=== PATIENT | female | born 1995 | race Hispanic/Latino ===

== ENCOUNTER 2016-09-08 13:38 | Outpatient (CLI) | payer SELFPAY ==
[2016-09-08 14:57] LABS: Bilirubin,Urine NEG (Negative); Blood,Urine MOD (Negative); Ketones,Urine NEG (Negative); Leukocyte Esterase,Urine TR (Negative); Nitrite,Urine NEG (Negative); Protein,Urine <15 mg/dL mg/dL (Negative); RBC,Urine < 1.0 /HPF (0.0-6.0); Urobilinogen,Urine < 2.0 mg/dL (<2.0)
[2016-09-08 15:54] VITALS: BP 105/67
== END 2016-09-08 16:23 | disposition home or self-care (01) ==
LOC: TRG 13:38
PROVIDERS: ATTEND Obstetrics & Gynecology Gynecology
DX: O77.9 Labor and delivery complicated by fetal stress, unspecified (principal); O47.1 False labor at or after 37 completed weeks of gestation; Z3A.38 38 weeks gestation of pregnancy
CPT/HCPCS: 59025; 81001

== ENCOUNTER 2016-09-15 09:08 | Outpatient (CLI) | payer MEDICAID ==
[2016-09-15 13:21] VITALS: BP 116/64
--- NOTE | 2016-09-15 14:08 | Ultrasound Report ---
BIOPHYSICAL PROFILE: Technique: Transabdominal ultrasound with Doppler interrogation. 2 - breathing movements 2 - movements 2 - posture and tone 2 - Qualitative amniotic fluid volume 8 - TOTAL SCORE OF POSSIBLE 8 Heart Rate (bpm) 134
--- NOTE | 2016-09-15 14:48 | Ultrasound Report ---
OB ULTRASOUND: TECHNIQUE: Transabdominal ultrasound with Doppler interrogation. Gestation: flynn Position: cephalic Amniotic Fluid: WNL (7-24 cm) STUART = 20.1 cm Placenta: anterior, fundal Placental Grade: I Heart Rate: 134 BPM Cervical length: 3.4 cm (Normal > 3 cm) ANATOMY VISUALIZED: Stomach Kidneys Bladder Diaphragm 4 Chamber Heart Heart 3 Vessel Cord SPINE VISUALIZED: Longitudinal BPD: 9.5 cm = 39 w 0 d HC: 34.9 cm = 40 w 4 d AC: 35.6 cm = 39 w 3 d FL: 7.1 cm = 36 w 1 d HC/AC Ratio: 0.98 Cephalic Index: 79.6 Estimated Weight: 3628 grams Clinical age = 40 w 2 d EDC: 09-13-16 US Gest. Age = 38 w 5 d EDC: 09-24-16 COMMENT: Mild right hydronephrosis is appreciated. Follow-up is recommended. The left kidney is unremarkable.
== END 2016-09-15 13:38 | disposition home or self-care (01) ==
LOC: TRG 09:08
PROVIDERS: ATTEND Obstetrics & Gynecology
DX: O47.1 False labor at or after 37 completed weeks of gestation (principal); Z3A.38 38 weeks gestation of pregnancy
CPT/HCPCS: 76805; 76819

== ENCOUNTER 2016-09-16 09:30 | Inpatient (IN) | payer MEDICAID ==
[2016-09-16] MEDS ORDERED: PEPCID IV ONE (10:03)
[2016-09-16] MEDS ORDERED: REGLAN IV ONE (10:03)
[2016-09-16] MEDS ORDERED: BICITRA PO ONE (10:03)
[2016-09-16] MEDS: LACTATED RINGERS 1,000 ML IV NR ×2 (10:40→11:20)
[2016-09-16] MEDS ORDERED: DILAUDID IV PRN (10:55)
[2016-09-16] MEDS ORDERED: NARCAN 0.4 MG/1 ML IV PRN ×2 (10:55→11:45)
[2016-09-16] MEDS ORDERED: ZOFRAN IV PRN (10:55)
[2016-09-16] MEDS ORDERED: BENADRYL IV PRN (10:55)
--- NOTE | 2016-09-16 10:55 | Anesthesia Consultation ---
Anesthesia Consult and Med Hx Date of service: 09/16/16 - Airway Anesthetic Teeth Evaluation: Good ROM Head & Neck: Adequate Mental/Hyoid Distance: Adequate - Pre-Operative Health Status ASA Pre-Surgery Classification: ASA2 Proposed Anesthetic Plan: Epidural, Spinal - Pulmonary Hx Asthma: No - Cardiovascular System Hx Hypertension: No - Central Nervous System Hx Seizures: No Hx Psychiatric Problems: No - Endocrine Hx Renal Disease: No Hx Hypothyroidism: No Hx Hyperthyroidism: No - Hematic Hx Anemia: No Hx Sickle Cell Disease: No - Other Systems Hx Alcohol Use: No
--- NOTE | 2016-09-16 10:55 | Anesthesia Day of Surgery ---
Anesthesia Day of Surgery - Day of Surgery Patient Examined: Yes Patient H&P Reviewed: Yes Patient is NPO: Yes
[2016-09-16] MEDS ORDERED: TORADOL IV PRN ×2 (10:56→15:30)
[2016-09-16] MEDS ORDERED: ANCEF/STERILE WATER 2 GM/20 ML 20 ML IV NR (11:00)
[2016-09-16] MEDS ORDERED: SODIUM CHLORIDE FLUSH SYRINGE 10 ML IV NR ×2 (11:00→12:00)
[2016-09-16] MEDS ORDERED: PITOCin/NS 20 UNIT/1000ML DRIP 1,000 ML IV NR (11:00)
[2016-09-16 11:02] LABS: Basophils % (Auto) 0.4 % (0.0-1.8); Eosinophils % (Auto) 0.4 % (0.0-4.3); Hematocrit 32.6 % (30.3-42.9); Mean Corpuscular HGB Conc 34 % (30-34); Mean Corpuscular Hemoglobin 30 pg (28-32); Mean Corpuscular Volume 90 fl (79-97); Platelet Count 237 K/mm3 (140-440); Red Blood Count 3.62 M/mm3 (3.65-5.03); Red Cell Distribution Width 13.9 % (13.2-15.2)
--- NOTE | 2016-09-16 11:44 | History and Physical Report ---
History of Present Illness Date of examination: 09/16/16 Date of admission: 09/16/16 09:30 Chief complaint: Previous History of present illness: 21y/o @ 39+3 weeks presents for a scheduled repeat delivery. The patient has not had care during this . She has a history of a prior delivery for cephalopelvic pelvic disproportion. She denies any vaginal bleeding or leakage of fluid. Her current GBS status is unknown Past History Past Medical History: no pertinent history Past Surgical History: section Social history: single - Obstetrical History Expected Date of Delivery: 09/20/16 Actual Gestation: 39 Week(s) 3 Day(s) : 2 Para: 1 Hx # Term Pregnancies: 1 Number of Pregnancies: 0 Spontaneous Abortions: 0 Induced : 0 Number of Living Children: 1 Medications and Allergies Allergies Allergy/AdvReac Type Severity Reaction Status Date / Time codeine Allergy Hives Verified 09/08/16 14:24 Active Meds: Active Medications Diphenhydramine HCl (Benadryl) 12.5 mg IV Q2H PRN PRN Reason: Itching Hydromorphone HCl (Dilaudid) 0.5 mg IV Q4H PRN PRN Reason: breakthrough pain > 7/10 Cefazolin Sodium (Ancef/Sterile Water 2 Gm/20 Ml) 20 mls @ 80 mls/hr IV PREOP NR PRN Reason: Protocol Stop: 09/16/16 23:00 Lactated Ringer's (Lactated Ringers) 1,000 mls @ 2,250 mls/hr IV PREOP NR Stop: 09/17/16 11:27 Last Admin: 09/16/16 11:20 Dose: 2,250 mls/hr Oxytocin/Sodium Chloride (Pitocin/Ns 20 Unit/1000ml Drip) 1,000 mls @ 0 mls/hr IV TITR NR PRN Reason: As Directed Stop: 09/16/16 23:00 Ketorolac Tromethamine (Toradol) 30 mg IV Q6H PRN PRN Reason: Pain, Moderate (4-6) Stop: 09/21/16 10:55 Naloxone HCl (Narcan 0.4 Mg/1 Ml) 0.2 mg IV Q2MIN PRN PRN Reason: Res Rate </= 8 or 02 SAT < 92% Stop: 09/18/16 10:56 Ondansetron HCl (Zofran) 4 mg IV Q8H PRN PRN Reason: Nausea And Vomiting Sodium Chloride (Sodium Chloride Flush Syringe 10 Ml) 10 ml IV PRN NR Stop: 09/16/16 23:59 Review of Systems All systems: negative Genitourinary: no vaginal bleeding, no leakage of fluid, no contractions - Physical Exam Breasts: Positive: deferred Cardiovascular: Regular rate Lungs: Positive: Clear to auscultation Abdomen: Positive: normal appearance - Obstetrical FHR: category 1 Uterine Contraction Monitor Mode: External Results Result Diagrams: 09/16/16 10:45 Abnormal lab results 09/16/16 Range/Units 10:45 RBC 3.62 L (3.65-5.03) M/mm3 [place] % (Auto) 8.5 H (0.0-7.3) % All other labs normal. Assessment and Plan - Patient Problems (1) Previous delivery affecting Current Visit: Yes Status: Acute Plan to address problem: Will proceed with a repeat delivery (2) Insufficient care Current Visit: Yes Status: Acute (3) Cephalopelvic disproportion Current Visit: Yes Status: Acute
[2016-09-16] MEDS ORDERED: TUCKS PAD TP PRN (11:45)
[2016-09-16] MEDS ORDERED: LANSINOH TP PRN (11:45)
[2016-09-16] MEDS ORDERED: MILK OF MAGNESIA PO PRN (11:45)
[2016-09-16] MEDS ORDERED: MORPHINE ONE (11:45)
[2016-09-16] MEDS ORDERED: MYLICON PO PRN (11:45)
--- NOTE | 2016-09-16 11:49 | Procedure Note ---
OB Delivery Note - Delivery Date of Delivery: 09/16/16 Surgeon: NICOLE GUERRA Estimated blood loss: other (800ml) - Section Preop diagnosis: repeat Postop diagnosis: same section procedure: section, repeat low transverse Disposition: PACU Complications: none - Infant A at 1 minute: 8 at 5 minutes: 9 Infant Gender: Male (weight 7 lbs. 3 oz.)
--- NOTE | 2016-09-16 11:51 | Operative Report ---
Operative Report Operative Report: Date of surgery: 09/16/2016 Preoperative diagnosis: at 39+3 weeks; prior delivery; cephalopelvic disproportion; insufficient care Postoperative diagnosis: Same as above Procedure: Repeat low transverse delivery Surgeon: Lizzy Amato M.D. Anesthesia: Regional Estimated blood loss: 800 mL IV fluids: 1000 mL Findings: Liveborn male with Apgars of 8 and 9 weight 7 lbs. 3 oz. Indications: 21-year-old at 39+3 weeks who presents for repeat area delivery. The patient has not had care during this . She has a history of cephalopelvic disproportion which was the indication for her prior delivery. Procedure: The patient was taken to the operating room and given regional anesthesia without complication. She was prepped and draped in a normal sterile fashion. A Pfannenstiel skin incision was made down to layer the fascia which was nicked in the midline extended laterally with the Bovie cautery. The superior aspect of the rectus fascia was grasped with Sumit clamps x2 and the rectus muscles off sharply. This was done in inferior fashion as well. The rectus muscle midline and peritoneum entered bluntly. An Nael retractor was then inserted. A bladder blade was placed. The vesicouterine peritoneum was then entered sharply with Metzenbaum scissors. A bladder flap was created digitally. A low transverse uterine incision was then made and extended digitally. There was clear fluid upon entry into the uterine cavity. The head was delivered through the incision with fundal pressure. The cord was clamped and cut x2 and infant was passed off to pediatrics. The placenta was then manually extracted. The uterus was then exteriorized and cleared of clots and debris. The uterine incision was then closed in a running locked fashion with 0 Vicryl additional imbricating stitch was applied for 2 layer closure. The posterior cul-de-sac was then copiously irrigated. The uterus was replaced back into the abdomen and pelvis were the gutters were then irrigated. The Nael retractor was then removed. The peritoneum was then reapproximated with 3-0 Vicryl incorporating the rectus muscle. The fascia was then closed with 0 Vicryl in a running fashion. The skin was then reapproximated with 3-0 Monocryl on a Iván needle subcuticular fashion. Steri-Strips to place across the incision and a Crede procedures performed at the end of the surgery. A pressure dressing was applied to the incision. The surgery productive of a liveborn male infant with Apgars of 8 and 9 weight 7 lbs. 3 oz. The patient was taken to the recovery room in stable condition. All sponge laps and needle counts correct x2.
[2016-09-16] MEDS ORDERED: PITOCin/NS 20 UNIT/1000ML DRIP 1,000 ML IV SCH (12:00)
[2016-09-16] MEDS ORDERED: ePHEDrine SULFATE ONE (12:00)
[2016-09-16] MEDS ORDERED: ANCEF/STERILE WATER 2 GM/20 ML IV ONE (12:12)
[2016-09-16] MEDS ORDERED: WATER FOR IRRIG STERILE IR ONE (12:23)
[2016-09-16] MEDS ORDERED: NACL 0.9% IR ONE (12:23)
[2016-09-16] MEDS ORDERED: NACL 0.9% 1000 ML 1,000 ML ONE (12:54)
[2016-09-16] MEDS ORDERED: fentaNYL-BUPIV 2 MCG/ML-0.125% 100 ML EPIDURAL ONE (13:21)
[2016-09-16] MEDS: BENADRYL IV PRN (15:26)
--- NOTE | 2016-09-16 16:42 | Post Anesthesia Evaluation ---
- Post Anesthesia Evaluation Patient Participated: Yes Airway Patent: Yes Stable Respiratory Function: Yes Temp > 96.8F: Yes Pain Manageable: Yes Adequeate Hydration: Yes Block Receding Appropriately: Yes
[2016-09-16] MEDS: D5LR 1,000 ML IV SCH (17:20)
[2016-09-16 23:44] LABS: Hematocrit 25.4 % (30.3-42.9); Hemoglobin 8.7 gm/dl (10.1-14.3)
[2016-09-17] MEDS: D5LR 1,000 ML IV SCH (00:17)
[2016-09-17] MEDS: BENADRYL IV PRN (05:30)
--- NOTE | 2016-09-17 13:08 | Progress Note ---
Assessment and Plan - Patient Problems (1) Previous delivery affecting Current Visit: Yes Status: Acute Plan to address problem: routine postoperative care (2) Insufficient care Current Visit: Yes Status: Acute (3) Cephalopelvic disproportion Current Visit: Yes Status: Acute Subjective - Subjective Date of service: 09/17/16 Interval history: Patient states her pain is controlled. Tolerated clear diet. Patient reports: appetite normal, voiding normally, pain well controlled : doing well Objective - Vital Signs Latest vital signs: Vital Signs Temp Pulse Pulse Resp BP BP Pulse Ox 09/17/16 08:11 98.3 F 83 20 101/54 09/17/16 05:30 98.4 F 83 18 97/58 09/17/16 01:10 97.7 F 80 18 107/60 09/16/16 20:40 98.4 F 86 18 104/53 09/16/16 15:40 97.3 F L 80 18 120/62 09/16/16 14:30 97.4 F L 78 20 126/56 09/16/16 14:03 89 20 123/61 97 09/16/16 13:43 84 11 L 115/55 97 09/16/16 13:27 87 11 L 124/67 98 09/16/16 13:10 85 12 112/68 98 Intake and Output 09/16/16 09/17/16 09/17/16 22:59 06:59 14:59 Intake Total 1200 1600 240 Output Total 150 1300 600 Balance 1050 300 -360 Intake: IV 960 1000 D5lr 1,000 ml @ 125 mls/ 550 1000 hr IV DIRECT STACIE Rx#: [id number] PITOCin/NS 20 UNIT/1000ML 410 DRIP 1,000 ML @ 250 mls/ hr IV TITR STACIE Rx#: [id number] Oral 240 240 Intake, Free Water 600 Output: Urine 150 1300 600 Indwelling Catheter 150 900 0 Void 400 600 Other: Total, Intake Amount 240 120 Total, Output Amount 150 400 600 Voiding Method Toilet # Voids Void 1 0 - Exam Uterus: Present: normal, firm Incision: Present: dressed - Labs Labs: Abnormal lab results 09/16/16 Range/Units 23:40 Hgb 8.7 L (10.1-14.3) gm/dl Hct 25.4 L D (30.3-42.9) %
[2016-09-17] MEDS: MOTRIN PO PRN (13:42)
--- NOTE | 2016-09-17 14:31 | Progress Note ---
Subjective Date of service: 09/17/16 Interval history: Patient is comfortable. Pain is well controlled with pain meds. Ambulated well. No residual neurological deficit. No anesthesia complications Objective - Constitutional Vitals: Vital Signs - 12hr 09/17/16 09/17/16 05:30 08:11 Temperature 98.4 F 98.3 F Pulse Rate [ 83 83 Right Radial] Respiratory 18 20 Rate Blood Pressure 97/58 101/54 [Right Arm] - Labs CBC & Chem 7: 09/16/16 23:40 Labs: Abnormal lab results 09/16/16 Range/Units 23:40 Hgb 8.7 L (10.1-14.3) gm/dl Hct 25.4 L D (30.3-42.9) %
[2016-09-17] MEDS ORDERED: BOOSTRIX IM ONE (21:15)
[2016-09-18] MEDS ORDERED: BOOSTRIX IM ONE (06:00)
[2016-09-18] MEDS: PERCOCET 5/325 PO PRN ×2 (08:02→18:03)
[2016-09-18] MEDS: MOTRIN PO PRN ×2 (08:02→18:03)
--- NOTE | 2016-09-18 08:13 | Progress Note ---
Assessment and Plan pod 2 s/p repeat c/s . doing well. consider d/c tomorrow if stable Subjective - Subjective Date of service: 09/18/16 Principal diagnosis: pod 2 s/p repeat c/s Interval history: routine post op care Patient reports: appetite normal, voiding normally, pain well controlled : doing well Objective - Vital Signs Latest vital signs: Vital Signs Temp Pulse Resp BP 09/18/16 00:20 98.1 F 80 20 120/67 09/17/16 15:55 98.7 F 101 H 20 113/56 Intake and Output 09/17/16 09/18/16 09/18/16 22:59 06:59 14:59 Intake Total 360 360 Output Total 900 Balance -540 360 Intake: Oral 360 Intake, Free Water 360 Output: Urine 900 Void 900 Other: Total, Intake Amount 240 Total, Output Amount 900 Voiding Method Toilet # Voids Void 1 2 - Exam Breasts: Present: deferred Cardiovascular: Present: Regular rate, Normal S1, Normal S2 Abdomen: Present: normal appearance, soft Vulva: both: normal Uterus: Present: normal, firm Extremities: Present: normal Incision: Present: normal, dry, intact
--- NOTE | 2016-09-18 08:17 | Discharge Summary ---
Providers - Providers Date of Admission: 09/16/16 09:30 Date of discharge: 09/19/16 Attending physician: NICOLE GUERRA Primary care physician: KASSANDRA GUZMÁN Hospitalization Reason for admission: section Delivery: Procedure: section, repeat low transverse Procedure details: s/p repeat c/s delivery of term male Episiotomy: none Laceration: none Incision: normal, intact Other procedures: none complications: none Discharge diagnosis: IUP at term delivered baby: male Hospital course: routinepost op course Condition at discharge: Good Disposition: DISCHARGED TO HOME OR SELFCARE - Discharge Diagnoses (1) Cephalopelvic disproportion Status: Acute (2) Insufficient care Status: Acute (3) Previous delivery affecting Status: Acute (4) Anemia Status: Acute Comment: from the blood loss of surgery Plan - Discharge Medications Prescriptions: Docusate Sodium [Colace] 100 mg PO BID PRN #60 capsule PRN Reason: Constipation Ferrous Sulfate [Feosol 325 MG tab] 325 mg PO BID #60 tablet Ibuprofen [Motrin] 800 mg PO Q8HR PRN #60 tablet PRN Reason: Pain Oxycodone HCl/Acetaminophen [Percocet 7.5/325 mg] 1 each PO Q6HR PRN #45 tablet PRN Reason: Pain - Provider Discharge Summary Activity: routine, no sex for 6 weeks, no heavy lifting 4 weeks, no strenuous exercise Diet: routine Instructions: routine Additional instructions: [] Smoking cessation referral if applicable(refer to patient education folder for contact #) [] Refer to [facility]'s [facility] Booklet Call your doctor immediately for: * Fever > 100.5 * Heavy vaginal bleeding ( >1 pad per hour) * Severe persistent headache * Shortness of breath * Reddened, hot, painful area to leg or breast * Drainage or odor from incision. * Keep incision clean and dry at all times and follow doctor's instructions regarding bathing/showering - Follow up plan Follow up: NICOLE GUERRA MD [Staff Physician] - 14 Days
[2016-09-18] MEDS: FEOSOL PO SCH ×2 (11:07→21:07)
[2016-09-19] MEDS: MOTRIN PO PRN (08:29)
[2016-09-19] MEDS: PERCOCET 5/325 PO PRN (08:29)
[2016-09-19 09:36] VITALS: BP 110/58
[2016-09-19] MEDS: FEOSOL PO SCH (11:00)
== END 2016-09-19 11:45 | disposition home or self-care (01) | DRG 765 ==
LOC: APU 09:30 → OB 14:34
PROVIDERS: ADMIT Obstetrics & Gynecology; ATTEND Obstetrics & Gynecology
PROC: 10D00Z1 Extraction of Products of Conception, Low, Open Approach (ICD-10-PCS; principal; 2016-09-16)
DX: O34.211 Maternal care for low transverse scar from previous cesarean delivery (principal); D62 Acute posthemorrhagic anemia; O33.9 Maternal care for disproportion, unspecified; O99.02 Anemia complicating childbirth; Z3A.39 39 weeks gestation of pregnancy; Z37.0 Single live birth; Z88.8 Allergy status to other drugs, medicaments and biological substances; O09.33 Supervision of pregnancy with insufficient antenatal care, third trimester
CPT/HCPCS: 36415; 85014; 85018; 85025; 86850; 86900; 86901; 90471; 90715; A6250; J0690; J1200; J1885; J2270; J2405; J2590; J2765; J7030; J7120; J7121